=== PATIENT | female | born 1935 | race Caucasian/White ===

== ENCOUNTER 2016-03-29 14:09 | Inpatient (IN) | payer OTHER ==
[~2016-03-29] VITALS: Ht 165.1 cm; Wt 69.9 kg
[~2016-03-29 14:09] MED LIST: ALEN10TA6 PO; ALEN70TA27 PO; ASPI81TA2 PO; BENA40TA2 PO; CILO100T PO; CLON-433 PO; CLOP75TA2 PO; GABA-529 PO; GABA-531 PO; GLU500 PO; LABE200T28 PO; LABETOLOL PO; LIP40 PO; MIDAZOLAM HCL 5 MG/5 ML VIAL ONE; NIFE30TA PO; NS 1000 ML BAG IV ONE; PROPOFOL 200MG/ 20ML VIAL (DIPRIVAN) IV ONE; SEVOFLURANE 15 MIN GAS INH ONE; SIMV40TA2 PO; VALS1TAB80 PO; fentaNYL CITRATE/PF 100 MCG/2 ML AMP ONE
[2016-03-29 14:21] VITALS: BP 110/55; PULSE 122; RESP 20; TEMP 98.5; O2SAT 99
[2016-03-29 15:06] LABS: BASOPHILS # (AUTO) 0.1 K/uL (0.0-0.2); BASOPHILS % (AUTO) 0.7 % (0.0-2.0); EOSINOPHILS % (AUTO) 0.4 % (0.0-4.0); HEMATOCRIT 28.2 % (36-48); HEMOGLOBIN 9.6 g/dL (12.0-16.0); LYMPHOCYTES # (AUTO) 0.5 K/uL (1.0-5.5); LYMPHOCYTES % (AUTO) 4.6 % (20.5-51.5); MEAN CORPUSCULAR HEMOGLOBIN 28 pg (27-31); MEAN CORPUSCULAR HGB CONC 34 % (32-36); MEAN CORPUSCULAR VOLUME 83 fL (79.0-98.0); MONOCYTES # (AUTO) 0.5 K/uL (0.0-1.0); MONOCYTES % (AUTO) 4.7 % (1.7-9.3); NEUTROPHILS # (AUTO) 10.6 K/uL (1.8-7.7); NEUTROPHILS % (AUTO) 89.6 % (40.0-70.0); PLATELET COUNT (AUTO) 416 K/uL (130-430); RED BLOOD CELL COUNT(AUTO) 3.41 MIL/uL (4.2-6.2); RED CELL DISTRIBUTION WIDTH 14.3 % (9.0-15.0); WHITE BLOOD COUNT (AUTO) 11.7 K/uL (4.8-10.8)
[2016-03-29 15:10] LABS: ANION GAP 11 (5-15); CALCIUM 9.4 mg/dL (8.4-11.0); CHLORIDE 98 mmol/L (98-107); CREATININE 1.63 mg/dL (0.55-1.30); GLUCOSE 209 mg/dL (70-99); POTASSIUM 3.8 mmol/L (3.5-5.1); SODIUM SERUM 134 mmol/L (136-145); UREA NITROGEN, BLOOD 35 mg/dL (8-21)
[2016-03-29 15:14] LABS: INR 1.1 (0.8-1.2); PROTHROMBIN TIME 11.7 SECS (9.5-12.5)
[2016-03-29 15:15] LABS: ALANINE AMINOTRANSFERASE 23 U/L (12-78); ALBUMIN 2.4 g/dL (3.4-4.8); ASPARTATE AMINOTRANSFERASE 17 U/L (10-37); TOTAL BILIRUBIN 0.5 mg/dL (0.0-1.0); TOTAL PROTEIN, SERUM 6.3 g/dL (6.4-8.3)
[2016-03-29] MEDS ORDERED: VANCOMYCIN HCL 1,000 MG in NS 250 ML IV ONE (15:45)
[2016-03-29] MEDS ORDERED: NACL 0.9% 1,000 ML IV ONE (15:45)
[2016-03-29] MEDS ORDERED: VITA1CAP PO (15:49)
[2016-03-29] MEDS ORDERED: VANCOMYCIN HCL 1000 MG/VIAL IV ONE (15:49)
[2016-03-29] MEDS ORDERED: MULT-976 PO (15:49)
[2016-03-29] MEDS ORDERED: IND25 PO (15:49)
[2016-03-29] MEDS ORDERED: ACET-2165 PO (15:49)
[2016-03-29] MEDS ORDERED: VITD2000 PO (15:49)
[2016-03-29] MEDS ORDERED: NOR10 PO (15:49)
[2016-03-29] MEDS ORDERED: GLIP2.5T3 PO (15:49)
[2016-03-29] MEDS ORDERED: METO200T3 PO (15:49)
[2016-03-29] MEDS ORDERED: KETOROLAC TROMETHAMINE 15 MG VIAL IVP ONE (16:30)
[2016-03-29] MEDS ORDERED: MORPHINE 2 MG/ML INJ. SYRINGE IVP PRN (17:00)
[2016-03-29 17:03] VITALS: BP 115/65; PULSE 119; RESP 18; TEMP 97.5; O2SAT 96
[2016-03-29] MEDS ORDERED: DEXTROSE 50% JECT 50 ML DISP.SYRIN IVP PRN (17:15)
[2016-03-29] MEDS: METOPROLOL SUCCINATE 50 MG TAB.SR.24H (TOPROL XL) PO SCH (18:00)
[2016-03-29] MEDS: NACL 0.9% 1,000 ML IV SCH (18:29)
[2016-03-29] MEDS: INSULIN REGULAR, HUMAN 100 UNITS/ML, 10 ML VIAL (novoLIN R) SUBCUT PRN ×2 (18:39→23:33)
[2016-03-29 20:03] VITALS: BP 121/57; PULSE 100; RESP 18; TEMP 98.9; O2SAT 96
[2016-03-29] MEDS: ONDANSETRON HCL 4 MG/2 ML VIAL IVP PRN (20:26)
[2016-03-29] MEDS: ACETAMINOPHEN 325 MG TABLET PO PRN (20:29)
[2016-03-29 23:42] VITALS: BP 96/50; PULSE 94; RESP 18; TEMP 98.6; O2SAT 94
[2016-03-30] MEDS: ONDANSETRON HCL 4 MG/2 ML VIAL IVP PRN (02:26)
[2016-03-30] MEDS: ACETAMINOPHEN 325 MG TABLET PO PRN (02:27)
[2016-03-30 03:25] VITALS: BP 96/50; PULSE 86; RESP 18; TEMP 98.2; O2SAT 95
[2016-03-30] MEDS: NACL 0.9% 1,000 ML IV SCH ×2 (03:30→16:40)
[2016-03-30] MEDS ORDERED: HYDROmorphone 1 MG INJ. 1 MG/ML AMPUL IVP ONE (04:00)
[2016-03-30 06:56] LABS: BASOPHILS % (AUTO) 0.4 % (0.0-2.0); EOSINOPHILS # (AUTO) 0.1 K/uL (0.0-0.4); EOSINOPHILS % (AUTO) 0.7 % (0.0-4.0); HEMATOCRIT 27.6 % (36-48); HEMOGLOBIN 8.8 g/dL (12.0-16.0); LYMPHOCYTES # (AUTO) 0.7 K/uL (1.0-5.5); LYMPHOCYTES % (AUTO) 6.9 % (20.5-51.5); MEAN CORPUSCULAR HEMOGLOBIN 27 pg (27-31); MEAN CORPUSCULAR HGB CONC 32 % (32-36); MEAN CORPUSCULAR VOLUME 85 fL (79.0-98.0); MONOCYTES # (AUTO) 0.7 K/uL (0.0-1.0); NEUTROPHILS # (AUTO) 8.8 K/uL (1.8-7.7); PLATELET COUNT (AUTO) 349 K/uL (130-430); RED BLOOD CELL COUNT(AUTO) 3.23 MIL/uL (4.2-6.2); RED CELL DISTRIBUTION WIDTH 14.4 % (9.0-15.0); WHITE BLOOD COUNT (AUTO) 10.3 K/uL (4.8-10.8)
[2016-03-30 07:47] LABS: ALANINE AMINOTRANSFERASE 25 U/L (12-78); ANION GAP 9 (5-15); ASPARTATE AMINOTRANSFERASE 25 U/L (10-37); CALCIUM 8.4 mg/dL (8.4-11.0); CHLORIDE 105 mmol/L (98-107); CREATININE 1.41 mg/dL (0.55-1.30); GLUCOSE 137 mg/dL (70-99); POTASSIUM 4.1 mmol/L (3.5-5.1); SODIUM SERUM 137 mmol/L (136-145); TOTAL BILIRUBIN 0.5 mg/dL (0.0-1.0); TOTAL PROTEIN, SERUM 5.8 g/dL (6.4-8.3); UREA NITROGEN, BLOOD 32 mg/dL (8-21)
[2016-03-30] MEDS: glipiZIDE XL 2.5 MG/TAB (GLUCOTROL XL) PO SCH (09:00)
[2016-03-30] MEDS ORDERED: CLOPIDOGREL BISULFATE 75 MG TABLET PO SCH (09:00)
[2016-03-30 09:23] VITALS: BP 115/59; PULSE 105; RESP 19; TEMP 98; O2SAT 97
[2016-03-30] MEDS: CHOLECALCIFEROL (VITAMIN D3) 2,000 UNIT TABLET PO SCH (09:25)
[2016-03-30] MEDS: amLODIPine BESYLATE 10 MG TABLET PO SCH (09:25)
[2016-03-30] MEDS ORDERED: LACTOBACILLUS RHAMNOSUS GG 1 CAP CAPSULE PO ONE (09:45)
[2016-03-30] MEDS ORDERED: PIPERACILLIN/TAZO 3.375/DEX-IS 50 ML IV SCH (12:00)
[2016-03-30] MEDS ORDERED: FLUCONAZOLE 200 mg/ NS 100 ML IV ONE (12:15)
[2016-03-30 12:48] VITALS: BP 97/52; PULSE 95; RESP 18; TEMP 97.2; O2SAT 98
[2016-03-30] MEDS: CEFEPIME 1 GM in D5W 50 ML IV SCH ×2 (15:28→20:57)
[2016-03-30] MEDS ORDERED: VANCOMYCIN HCL 750 MG in NS 250 ML IV SCH (16:00)
[2016-03-30 16:50] VITALS: BP 106/69; PULSE 87; RESP 18; TEMP 98.2; O2SAT 96
[2016-03-30] MEDS ORDERED: HYDROmorphone 1 MG INJ. 1 MG/ML AMPUL IVP PRN (17:00)
[2016-03-30] MEDS: METOPROLOL SUCCINATE 50 MG TAB.SR.24H (TOPROL XL) PO SCH ×2 (17:57→18:00)
[2016-03-30 20:00] VITALS: BP 117/56; PULSE 88; RESP 18; TEMP 99.1; O2SAT 92
[2016-03-30] MEDS: CLOTRIMAZOLE/BETAMET DIPROP 15 GM TUBE TP SCH (22:19)
[2016-03-30] MEDS: LACTOBACILLUS RHAMNOSUS GG 1 CAP CAPSULE PO SCH (22:26)
[2016-03-31] VITALS (7 sets, daily range): BP systolic 99–115; BP diastolic 49–59; PULSE 94–107; RESP 18–19; TEMP 98.4–99.6; O2SAT 87–98
[2016-03-31] MEDS ORDERED: ALBUTEROL SULFATE 0.083% 2.5 MG/3 ML VIAL.NEB INH PRN (00:15)
[2016-03-31] MEDS: NACL 0.9% 1,000 ML IV SCH ×2 (00:57→09:30)
[2016-03-31] MEDS ORDERED: ALBUTEROL SULFATE 0.083% 2.5 MG/3 ML VIAL.NEB INH ONE (00:58)
[2016-03-31] MEDS: INSULIN REGULAR, HUMAN 100 UNITS/ML, 10 ML VIAL (novoLIN R) SUBCUT PRN ×3 (00:58→17:27)
[2016-03-31 07:47] LABS: BILIRUBIN,URINE NEGATIVE (NEGATIVE); BLOOD, URINE NEGATIVE (NEGATIVE); CLARITY/URINE CLEAR (CLEAR); COLOR,URINE YELLOW (YELLOW); GLUCOSE,URINE NEGATIVE (NEGATIVE); KETONES,URINE NEGATIVE (NEGATIVE); LEUKOCYTE ESTERASE ,URINE NEGATIVE (NEGATIVE); NITRITE, URINE NEGATIVE (NEGATIVE); PH,URINE 5.5 (5.0-8.0); PROTEIN URINE NEGATIVE (NEGATIVE); UROBILINOGEN,URINE 0.2 (0.2-1.0)
[2016-03-31] MEDS ORDERED: LR 1,000 ML IV SCH (08:26)
[2016-03-31] MEDS: glipiZIDE XL 2.5 MG/TAB (GLUCOTROL XL) PO SCH (09:00)
[2016-03-31] MEDS: amLODIPine BESYLATE 10 MG TABLET PO SCH (09:00)
[2016-03-31] MEDS: CEFEPIME 1 GM in D5W 50 ML IV SCH ×2 (09:46→20:35)
[2016-03-31] MEDS: FLUCONAZOLE 200 mg/ NS 100 ML IV SCH (09:46)
[2016-03-31] MEDS: CLOTRIMAZOLE/BETAMET DIPROP 15 GM TUBE TP SCH ×2 (09:47→23:28)
[2016-03-31] MEDS: 0.45% NACL 1,000 ML IV SCH (11:25)
[2016-03-31] MEDS: ALBUTEROL SULFATE 0.083% 2.5 MG/3 ML VIAL.NEB INH SCH ×4 (11:48→20:08)
[2016-03-31] MEDS: IPRATROPIUM BROM 0.5 MG/2.5 ML VIAL.NEB (ATROVENT) INH SCH ×3 (11:48→20:08)
[2016-03-31 12:10] LABS: ABG TOTAL HEMOGLOBIN 10.8 G/dL (12.0-18.0); BLOOD GAS BASE EXCESS -3.8 mmol/L (-3.0-3.0); BLOOD GAS PH 7.412 (7.350-7.450)
[2016-03-31 12:11] LABS: BLOOD GAS COHb% 0.1 % (0.5-1.5); BLOOD GAS HHB 22.9 % (0.0-6.0); BLOOD O2Hb% 76.8 % (94.0-97.0)
[2016-03-31] MEDS: CHOLECALCIFEROL (VITAMIN D3) 2,000 UNIT TABLET PO SCH (12:34)
[2016-03-31] MEDS: LACTOBACILLUS RHAMNOSUS GG 1 CAP CAPSULE PO SCH ×2 (12:34→20:42)
[2016-03-31] MEDS: BALSAM PERU/CASTOR OIL 60 GM OINT...G. TP SCH ×2 (12:36→23:28)
[2016-03-31] MEDS: traMADol HCL HCL 50 MG TABLET (ULTRAM) PO PRN (12:59)
[2016-03-31] MEDS: METOPROLOL SUCCINATE 50 MG TAB.SR.24H (TOPROL XL) PO SCH (17:20)
[2016-04-01] VITALS (9 sets, daily range): BP systolic 102–121; BP diastolic 46–66; PULSE 85–119; RESP 16–21; TEMP 97–102.2; O2SAT 90–95; Ht 165.1 cm; Wt 69.9 kg
[2016-04-01] MEDS: INSULIN REGULAR, HUMAN 100 UNITS/ML, 10 ML VIAL (novoLIN R) SUBCUT PRN ×2 (00:32→11:34)
[2016-04-01] MEDS: 0.45% NACL 1,000 ML IV SCH ×2 (05:35→21:57)
[2016-04-01] MEDS: IPRATROPIUM BROM 0.5 MG/2.5 ML VIAL.NEB (ATROVENT) INH PRN ×2 (06:02→16:46)
[2016-04-01] MEDS: ALBUTEROL SULFATE 0.083% 2.5 MG/3 ML VIAL.NEB INH PRN ×2 (06:02→16:46)
[2016-04-01 07:08] LABS: BASOPHILS % (AUTO) 0.3 % (0.0-2.0); EOSINOPHILS # (AUTO) 0.1 K/uL (0.0-0.4); EOSINOPHILS % (AUTO) 1.3 % (0.0-4.0); HEMATOCRIT 26.5 % (36-48); HEMOGLOBIN 8.8 g/dL (12.0-16.0); LYMPHOCYTES # (AUTO) 0.8 K/uL (1.0-5.5); LYMPHOCYTES % (AUTO) 8.3 % (20.5-51.5); MEAN CORPUSCULAR HEMOGLOBIN 28 pg (27-31); MEAN CORPUSCULAR HGB CONC 33 % (32-36); MEAN CORPUSCULAR VOLUME 83 fL (79.0-98.0); MONOCYTES # (AUTO) 0.9 K/uL (0.0-1.0); NEUTROPHILS # (AUTO) 7.5 K/uL (1.8-7.7); NEUTROPHILS % (AUTO) 80.1 % (40.0-70.0); PLATELET COUNT (AUTO) 393 K/uL (130-430); RED BLOOD CELL COUNT(AUTO) 3.18 MIL/uL (4.2-6.2); RED CELL DISTRIBUTION WIDTH 15.5 % (9.0-15.0); WHITE BLOOD COUNT (AUTO) 9.3 K/uL (4.8-10.8)
[2016-04-01] MEDS: ALBUTEROL SULFATE 0.083% 2.5 MG/3 ML VIAL.NEB INH SCH ×5 (07:24→23:30)
[2016-04-01] MEDS: IPRATROPIUM BROM 0.5 MG/2.5 ML VIAL.NEB (ATROVENT) INH SCH ×5 (07:24→23:30)
[2016-04-01 08:01] LABS: ALANINE AMINOTRANSFERASE 50 U/L (12-78); ALBUMIN 1.8 g/dL (3.4-4.8); ANION GAP 10 (5-15); ASPARTATE AMINOTRANSFERASE 60 U/L (10-37); CALCIUM 7.4 mg/dL (8.4-11.0); CHLORIDE 105 mmol/L (98-107); GLUCOSE 125 mg/dL (70-99); POTASSIUM 4.8 mmol/L (3.5-5.1); SODIUM SERUM 138 mmol/L (136-145); TOTAL BILIRUBIN 0.3 mg/dL (0.0-1.0); UREA NITROGEN, BLOOD 20 mg/dL (8-21)
[2016-04-01] MEDS ORDERED: CLOPIDOGREL BISULFATE 75 MG TABLET PO ONE (08:15)
[2016-04-01] MEDS: CILOSTAZOL 50 MG TABLET (PLETAL) PO SCH ×2 (09:33→21:57)
[2016-04-01] MEDS: CEFEPIME 1 GM in D5W 50 ML IV SCH ×2 (09:33→23:06)
[2016-04-01] MEDS: LACTOBACILLUS RHAMNOSUS GG 1 CAP CAPSULE PO SCH ×2 (09:34→21:57)
[2016-04-01] MEDS: CHOLECALCIFEROL (VITAMIN D3) 2,000 UNIT TABLET PO SCH (09:34)
[2016-04-01] MEDS: amLODIPine BESYLATE 10 MG TABLET PO SCH (09:34)
[2016-04-01] MEDS: glipiZIDE XL 2.5 MG/TAB (GLUCOTROL XL) PO SCH (09:35)
[2016-04-01] MEDS: CLOTRIMAZOLE/BETAMET DIPROP 15 GM TUBE TP SCH ×2 (09:35→21:58)
[2016-04-01] MEDS: BALSAM PERU/CASTOR OIL 60 GM OINT...G. TP SCH ×2 (10:28→21:58)
[2016-04-01] MEDS: FLUCONAZOLE 200 mg/ NS 100 ML IV SCH (10:28)
[2016-04-01] MEDS ORDERED: FUROSEMIDE 40 MG/4 ML VIAL IVP ONE (10:30)
[2016-04-01] MEDS ORDERED: POLYETHYLENE GLYCOL 3350, 17 GM/ POWD.PACK PO ONE (12:30)
[2016-04-01] MEDS: ACETAMINOPHEN 325 MG TABLET PO PRN (16:18)
[2016-04-01] MEDS: METOPROLOL SUCCINATE 50 MG TAB.SR.24H (TOPROL XL) PO SCH (17:41)
[2016-04-02] VITALS (7 sets, daily range): BP systolic 109–134; BP diastolic 55–67; PULSE 82–101; RESP 16–19; TEMP 97.6–98.9; O2SAT 89–94
[2016-04-02] MEDS: ALBUTEROL SULFATE 0.083% 2.5 MG/3 ML VIAL.NEB INH SCH ×6 (03:30→23:00)
[2016-04-02] MEDS: IPRATROPIUM BROM 0.5 MG/2.5 ML VIAL.NEB (ATROVENT) INH SCH ×6 (03:30→23:00)
[2016-04-02 06:31] LABS: BASOPHILS % (AUTO) 0.3 % (0.0-2.0); EOSINOPHILS # (AUTO) 0.2 K/uL (0.0-0.4); EOSINOPHILS % (AUTO) 1.7 % (0.0-4.0); HEMATOCRIT 27.9 % (36-48); HEMOGLOBIN 9.1 g/dL (12.0-16.0); LYMPHOCYTES # (AUTO) 0.6 K/uL (1.0-5.5); LYMPHOCYTES % (AUTO) 5.2 % (20.5-51.5); MEAN CORPUSCULAR HEMOGLOBIN 27 pg (27-31); MEAN CORPUSCULAR HGB CONC 33 % (32-36); MEAN CORPUSCULAR VOLUME 84 fL (79.0-98.0); MONOCYTES # (AUTO) 0.9 K/uL (0.0-1.0); NEUTROPHILS # (AUTO) 10.8 K/uL (1.8-7.7); NEUTROPHILS % (AUTO) 85.8 % (40.0-70.0); PLATELET COUNT (AUTO) 461 K/uL (130-430); RED BLOOD CELL COUNT(AUTO) 3.33 MIL/uL (4.2-6.2); RED CELL DISTRIBUTION WIDTH 15.3 % (9.0-15.0); WHITE BLOOD COUNT (AUTO) 12.5 K/uL (4.8-10.8)
[2016-04-02 07:21] LABS: ALANINE AMINOTRANSFERASE 49 U/L (12-78); ALBUMIN 1.8 g/dL (3.4-4.8); ANION GAP 10 (5-15); ASPARTATE AMINOTRANSFERASE 56 U/L (10-37); CALCIUM 7.6 mg/dL (8.4-11.0); CHLORIDE 102 mmol/L (98-107); CREATININE 0.94 mg/dL (0.55-1.30); GLUCOSE 98 mg/dL (70-99); POTASSIUM 4.1 mmol/L (3.5-5.1); SODIUM SERUM 137 mmol/L (136-145); TOTAL BILIRUBIN 0.4 mg/dL (0.0-1.0); UREA NITROGEN, BLOOD 19 mg/dL (8-21)
[2016-04-02] MEDS: LACTOBACILLUS RHAMNOSUS GG 1 CAP CAPSULE PO SCH ×2 (08:30→21:05)
[2016-04-02] MEDS: CILOSTAZOL 50 MG TABLET (PLETAL) PO SCH ×2 (08:30→21:05)
[2016-04-02] MEDS: POLYETHYLENE GLYCOL 3350, 17 GM/ POWD.PACK PO SCH (08:32)
[2016-04-02] MEDS: CEFEPIME 1 GM in D5W 50 ML IV SCH ×2 (08:32→21:01)
[2016-04-02] MEDS: CHOLECALCIFEROL (VITAMIN D3) 2,000 UNIT TABLET PO SCH (08:32)
[2016-04-02] MEDS: amLODIPine BESYLATE 10 MG TABLET PO SCH (08:32)
[2016-04-02] MEDS: glipiZIDE XL 2.5 MG/TAB (GLUCOTROL XL) PO SCH (09:43)
[2016-04-02] MEDS: CLOTRIMAZOLE/BETAMET DIPROP 15 GM TUBE TP SCH ×2 (09:43→21:08)
[2016-04-02] MEDS: BALSAM PERU/CASTOR OIL 60 GM OINT...G. TP SCH ×2 (09:44→21:08)
[2016-04-02] MEDS: FLUCONAZOLE 200 mg/ NS 100 ML IV SCH (09:57)
[2016-04-02] MEDS ORDERED: FUROSEMIDE 20 MG/2 ML VIAL IVP ONE ×2 (11:30→14:30)
[2016-04-02] MEDS: VANCOMYCIN HCL 1,000 MG in NS 250 ML IV SCH (12:53)
[2016-04-02] MEDS: 0.45% NACL 1,000 ML IV SCH (13:00)
[2016-04-02] MEDS: traMADol HCL HCL 50 MG TABLET (ULTRAM) PO PRN (14:34)
[2016-04-02] MEDS ORDERED: IOHEXOL 350 mgI/mL, 150 ML INFUS..BTL IV ONE (15:33)
[2016-04-02] MEDS: METOPROLOL SUCCINATE 50 MG TAB.SR.24H (TOPROL XL) PO SCH (17:55)
[2016-04-03 00:21] VITALS: BP 114/60; PULSE 97; RESP 17; TEMP 98; O2SAT 94
[2016-04-03] MEDS: IPRATROPIUM BROM 0.5 MG/2.5 ML VIAL.NEB (ATROVENT) INH SCH ×6 (03:00→20:40)
[2016-04-03] MEDS: ALBUTEROL SULFATE 0.083% 2.5 MG/3 ML VIAL.NEB INH SCH ×6 (03:00→20:40)
[2016-04-03 04:00] VITALS: BP 116/62; PULSE 87; RESP 18; TEMP 98.4; O2SAT 95
[2016-04-03] MEDS: 0.45% NACL 1,000 ML IV SCH (05:22)
[2016-04-03 06:35] LABS: BASOPHILS % (AUTO) 0.4 % (0.0-2.0); EOSINOPHILS # (AUTO) 0.2 K/uL (0.0-0.4); HEMATOCRIT 27.1 % (36-48); HEMOGLOBIN 8.9 g/dL (12.0-16.0); LYMPHOCYTES # (AUTO) 0.8 K/uL (1.0-5.5); LYMPHOCYTES % (AUTO) 7.7 % (20.5-51.5); MEAN CORPUSCULAR HEMOGLOBIN 27 pg (27-31); MEAN CORPUSCULAR HGB CONC 33 % (32-36); MEAN CORPUSCULAR VOLUME 83 fL (79.0-98.0); MONOCYTES # (AUTO) 0.7 K/uL (0.0-1.0); MONOCYTES % (AUTO) 6.8 % (1.7-9.3); NEUTROPHILS # (AUTO) 9.1 K/uL (1.8-7.7); NEUTROPHILS % (AUTO) 83.1 % (40.0-70.0); PLATELET COUNT (AUTO) 467 K/uL (130-430); RED BLOOD CELL COUNT(AUTO) 3.27 MIL/uL (4.2-6.2); RED CELL DISTRIBUTION WIDTH 15.4 % (9.0-15.0); WHITE BLOOD COUNT (AUTO) 10.8 K/uL (4.8-10.8)
[2016-04-03 06:48] LABS: ANION GAP 9 (5-15); CALCIUM 7.1 mg/dL (8.4-11.0); CHLORIDE 102 mmol/L (98-107); CREATININE 0.89 mg/dL (0.55-1.30); GLUCOSE 96 mg/dL (70-99); POTASSIUM 3.7 mmol/L (3.5-5.1); SODIUM SERUM 136 mmol/L (136-145); UREA NITROGEN, BLOOD 15 mg/dL (8-21)
[2016-04-03 08:06] VITALS: BP 108/50; PULSE 92; RESP 19; TEMP 97.3; O2SAT 92
[2016-04-03] MEDS: glipiZIDE XL 2.5 MG/TAB (GLUCOTROL XL) PO SCH ×2 (09:00→09:19)
[2016-04-03] MEDS: POLYETHYLENE GLYCOL 3350, 17 GM/ POWD.PACK PO SCH (09:00)
[2016-04-03] MEDS: CLOTRIMAZOLE/BETAMET DIPROP 15 GM TUBE TP SCH ×2 (09:17→20:56)
[2016-04-03] MEDS: CEFEPIME 1 GM in D5W 50 ML IV SCH ×2 (09:17→20:55)
[2016-04-03] MEDS: BALSAM PERU/CASTOR OIL 60 GM OINT...G. TP SCH ×2 (09:18→20:56)
[2016-04-03] MEDS: CILOSTAZOL 50 MG TABLET (PLETAL) PO SCH ×2 (09:19→20:55)
[2016-04-03] MEDS: CHOLECALCIFEROL (VITAMIN D3) 2,000 UNIT TABLET PO SCH (09:19)
[2016-04-03] MEDS: LACTOBACILLUS RHAMNOSUS GG 1 CAP CAPSULE PO SCH ×2 (09:20→20:55)
[2016-04-03] MEDS: amLODIPine BESYLATE 10 MG TABLET PO SCH (09:20)
[2016-04-03] MEDS: VANCOMYCIN HCL 1,000 MG in NS 250 ML IV SCH (12:00)
[2016-04-03 12:43] VITALS: BP 133/65; PULSE 106; RESP 19; TEMP 98.9; O2SAT 87
[2016-04-03] MEDS: ACETAMINOPHEN 325 MG TABLET PO PRN (14:01)
[2016-04-03] MEDS ORDERED: FUROSEMIDE 20 MG/2 ML VIAL IVP ONE (14:15)
[2016-04-03 17:05] VITALS: BP 106/50; PULSE 105; RESP 19; TEMP 98.1; O2SAT 95
[2016-04-03] MEDS: METOPROLOL SUCCINATE 50 MG TAB.SR.24H (TOPROL XL) PO SCH (18:02)
[2016-04-03] MEDS ORDERED: MAG-AL HYDROX/SIMETH 30 ML UDC PO ONE (18:30)
[2016-04-03 19:30] VITALS: BP 120/58; PULSE 92; RESP 18; TEMP 98; O2SAT 92
[2016-04-03] MEDS: traMADol HCL HCL 50 MG TABLET (ULTRAM) PO PRN (23:45)
[2016-04-03] MEDS: ONDANSETRON HCL 4 MG/2 ML VIAL IVP PRN (23:52)
[2016-04-04 00:30] VITALS: BP 122/64; PULSE 94; RESP 17; TEMP 98.4; O2SAT 91
[2016-04-04] MEDS: 0.45% NACL 1,000 ML IV SCH ×2 (01:54→17:19)
[2016-04-04 04:18] VITALS: BP 119/65; PULSE 88; RESP 18; TEMP 98.1; O2SAT 93
[2016-04-04 07:25] LABS: BASOPHILS % (AUTO) 0.2 % (0.0-2.0); EOSINOPHILS # (AUTO) 0.1 K/uL (0.0-0.4); EOSINOPHILS % (AUTO) 1.4 % (0.0-4.0); HEMATOCRIT 26.5 % (36-48); HEMOGLOBIN 8.8 g/dL (12.0-16.0); LYMPHOCYTES # (AUTO) 0.8 K/uL (1.0-5.5); LYMPHOCYTES % (AUTO) 7.9 % (20.5-51.5); MEAN CORPUSCULAR HEMOGLOBIN 28 pg (27-31); MEAN CORPUSCULAR HGB CONC 33 % (32-36); MEAN CORPUSCULAR VOLUME 83 fL (79.0-98.0); MONOCYTES # (AUTO) 0.6 K/uL (0.0-1.0); MONOCYTES % (AUTO) 5.7 % (1.7-9.3); NEUTROPHILS # (AUTO) 9.1 K/uL (1.8-7.7); NEUTROPHILS % (AUTO) 84.8 % (40.0-70.0); PLATELET COUNT (AUTO) 450 K/uL (130-430); RED CELL DISTRIBUTION WIDTH 15.4 % (9.0-15.0); WHITE BLOOD COUNT (AUTO) 10.6 K/uL (4.8-10.8)
[2016-04-04 07:38] LABS: ANION GAP 11 (5-15); CHLORIDE 102 mmol/L (98-107); CREATININE 0.98 mg/dL (0.55-1.30); GLUCOSE 87 mg/dL (70-99); POTASSIUM 3.7 mmol/L (3.5-5.1); SODIUM SERUM 136 mmol/L (136-145); UREA NITROGEN, BLOOD 14 mg/dL (8-21)
[2016-04-04] MEDS: IPRATROPIUM BROM 0.5 MG/2.5 ML VIAL.NEB (ATROVENT) INH SCH ×4 (07:43→21:02)
[2016-04-04] MEDS: ALBUTEROL SULFATE 0.083% 2.5 MG/3 ML VIAL.NEB INH SCH ×4 (07:43→21:01)
[2016-04-04 08:12] LABS: CALCIUM 6.8 mg/dL (8.4-11.0)
[2016-04-04 08:26] VITALS: BP 116/59; PULSE 87; RESP 20; TEMP 99.3; O2SAT 95
[2016-04-04] MEDS: BALSAM PERU/CASTOR OIL 60 GM OINT...G. TP PRN (08:27)
[2016-04-04] MEDS: CLOTRIMAZOLE/BETAMET DIPROP 15 GM TUBE TP SCH ×2 (08:27→20:48)
[2016-04-04] MEDS: CILOSTAZOL 50 MG TABLET (PLETAL) PO SCH ×2 (08:28→20:49)
[2016-04-04] MEDS: CLOPIDOGREL BISULFATE 75 MG TABLET PO SCH (08:28)
[2016-04-04] MEDS: LACTOBACILLUS RHAMNOSUS GG 1 CAP CAPSULE PO SCH (08:28)
[2016-04-04] MEDS: glipiZIDE XL 2.5 MG/TAB (GLUCOTROL XL) PO SCH (08:28)
[2016-04-04] MEDS: amLODIPine BESYLATE 10 MG TABLET PO SCH (08:29)
[2016-04-04] MEDS: POLYETHYLENE GLYCOL 3350, 17 GM/ POWD.PACK PO SCH (08:29)
[2016-04-04] MEDS: CHOLECALCIFEROL (VITAMIN D3) 2,000 UNIT TABLET PO SCH (08:29)
[2016-04-04] MEDS: CEFEPIME 1 GM in D5W 50 ML IV SCH ×2 (08:32→20:48)
[2016-04-04] MEDS: BALSAM PERU/CASTOR OIL 60 GM OINT...G. TP SCH ×2 (08:33→20:55)
[2016-04-04] MEDS ORDERED: FUROSEMIDE 20 MG/2 ML VIAL IVP ONE (10:00)
[2016-04-04] MEDS ORDERED: CALCIUM 500 MG/TAB PO ONE (10:45)
[2016-04-04] MEDS: VANCOMYCIN HCL 1,000 MG in NS 250 ML IV SCH (11:48)
[2016-04-04 12:53] VITALS: BP 120/57; PULSE 99; RESP 18; TEMP 99; O2SAT 92
[2016-04-04 16:38] VITALS: BP 115/62; PULSE 97; RESP 18; TEMP 99.3; O2SAT 91
[2016-04-04] MEDS: METOPROLOL SUCCINATE 50 MG TAB.SR.24H (TOPROL XL) PO SCH (17:18)
[2016-04-04] MEDS: ACETAMINOPHEN 325 MG TABLET PO PRN (17:24)
[2016-04-04] MEDS: CALCIUM 500 MG/TAB PO SCH (20:49)
[2016-04-05] VITALS (7 sets, daily range): BP systolic 112–124; BP diastolic 56–71; PULSE 86–104; RESP 14–20; TEMP 97.6–99.7; O2SAT 90–97
[2016-04-05 06:51] LABS: ANION GAP 12 (5-15); CHLORIDE 102 mmol/L (98-107); CREATININE 0.95 mg/dL (0.55-1.30); GLUCOSE 81 mg/dL (70-99); POTASSIUM 3.9 mmol/L (3.5-5.1); SODIUM SERUM 137 mmol/L (136-145); UREA NITROGEN, BLOOD 12 mg/dL (8-21)
[2016-04-05 06:52] LABS: BASOPHILS % (AUTO) 0.1 % (0.0-2.0); EOSINOPHILS # (AUTO) 0.2 K/uL (0.0-0.4); HEMATOCRIT 27.3 % (36-48); HEMOGLOBIN 9.1 g/dL (12.0-16.0); LYMPHOCYTES # (AUTO) 0.8 K/uL (1.0-5.5); LYMPHOCYTES % (AUTO) 6.9 % (20.5-51.5); MEAN CORPUSCULAR HEMOGLOBIN 27 pg (27-31); MEAN CORPUSCULAR HGB CONC 33 % (32-36); MEAN CORPUSCULAR VOLUME 82 fL (79.0-98.0); MONOCYTES # (AUTO) 0.6 K/uL (0.0-1.0); MONOCYTES % (AUTO) 5.5 % (1.7-9.3); NEUTROPHILS # (AUTO) 9.5 K/uL (1.8-7.7); NEUTROPHILS % (AUTO) 85.5 % (40.0-70.0); PLATELET COUNT (AUTO) 470 K/uL (130-430); RED BLOOD CELL COUNT(AUTO) 3.32 MIL/uL (4.2-6.2); RED CELL DISTRIBUTION WIDTH 15.6 % (9.0-15.0); WHITE BLOOD COUNT (AUTO) 11.1 K/uL (4.8-10.8)
[2016-04-05 06:58] LABS: CALCIUM 6.9 mg/dL (8.4-11.0)
[2016-04-05] MEDS: CEFEPIME 1 GM in D5W 50 ML IV SCH (08:46)
[2016-04-05] MEDS: CILOSTAZOL 50 MG TABLET (PLETAL) PO SCH ×2 (08:46→21:55)
[2016-04-05] MEDS: CHOLECALCIFEROL (VITAMIN D3) 2,000 UNIT TABLET PO SCH (08:47)
[2016-04-05] MEDS: CLOPIDOGREL BISULFATE 75 MG TABLET PO SCH (08:47)
[2016-04-05] MEDS: amLODIPine BESYLATE 10 MG TABLET PO SCH (08:49)
[2016-04-05] MEDS: CALCIUM 500 MG/TAB PO SCH ×2 (08:50→21:55)
[2016-04-05] MEDS: POLYETHYLENE GLYCOL 3350, 17 GM/ POWD.PACK PO SCH (08:52)
[2016-04-05] MEDS: BALSAM PERU/CASTOR OIL 60 GM OINT...G. TP SCH ×2 (09:00→21:00)
[2016-04-05] MEDS ORDERED: ETOMIDATE 20 MG/ 10 ML VIAL (AMIDATE) ONE (09:04)
[2016-04-05] MEDS ORDERED: SUCCINYLCHOLINE CHLORIDE 20 MG/ML(QUELICIN) ONE (09:04)
[2016-04-05] MEDS ORDERED: FUROSEMIDE 20 MG/2 ML VIAL IVP ONE (09:15)
[2016-04-05] MEDS: ALBUTEROL SULFATE 0.083% 2.5 MG/3 ML VIAL.NEB INH SCH ×3 (11:57→19:24)
[2016-04-05] MEDS: IPRATROPIUM BROM 0.5 MG/2.5 ML VIAL.NEB (ATROVENT) INH SCH ×3 (11:57→19:23)
[2016-04-05] MEDS: glipiZIDE XL 2.5 MG/TAB (GLUCOTROL XL) PO SCH ×2 (12:35→13:05)
[2016-04-05] MEDS: 0.45% NACL 1,000 ML IV SCH (12:36)
[2016-04-05] MEDS: BALSAM PERU/CASTOR OIL 60 GM OINT...G. TP PRN ×3 (12:37→21:57)
[2016-04-05] MEDS: CLOTRIMAZOLE/BETAMET DIPROP 15 GM TUBE TP SCH ×2 (12:37→21:57)
[2016-04-05] MEDS: VANCOMYCIN HCL 1,000 MG in NS 250 ML IV SCH (13:13)
[2016-04-05] MEDS: ONDANSETRON HCL 4 MG/2 ML VIAL IVP PRN (13:18)
[2016-04-05] MEDS: traMADol HCL HCL 50 MG TABLET (ULTRAM) PO PRN (16:04)
[2016-04-05] MEDS: METOPROLOL SUCCINATE 50 MG TAB.SR.24H (TOPROL XL) PO SCH (18:10)
[2016-04-05] MEDS ORDERED: MORPHINE 2 MG/ML INJ. SYRINGE ONE (22:39)
[2016-04-05] MEDS ORDERED: LORazepam 2 MG/ML VIAL ONE (22:41)
[2016-04-05] MEDS ORDERED: HYDROmorphone 1 MG INJ. 1 MG/ML AMPUL ONE (22:41)
[2016-04-05 23:04] LABS: HEMATOCRIT 20.3 % (36-48); HEMOGLOBIN 6.4 g/dL (12.0-16.0)
[2016-04-05 23:08] LABS: INR 1.1 (0.8-1.2)
[2016-04-05] MEDS ORDERED: LR 1,000 ML IV.SOLN IV ONE (23:46)
[2016-04-05] MEDS ORDERED: NS 1000 ML BAG IV ONE (23:46)
[2016-04-05] MEDS ORDERED: NS IRRIG SOLN 1000 ML IR ONE (23:46)
[2016-04-05] MEDS ORDERED: fentaNYL CITRATE 250 MCG/5 ML AMP IV ONE (23:46)
[2016-04-05] MEDS ORDERED: DEXAMETHASONE SOD PHOSPHATE 4 MG/ML VIAL IVP ONE (23:46)
[2016-04-05] MEDS ORDERED: MIDAZOLAM HCL 5 MG/5 ML VIAL IVP ONE (23:46)
[2016-04-05] MEDS ORDERED: ROCURONIUM BROMIDE 10 MG/ML (ZEMURON) IV ONE (23:46)
[2016-04-06] VITALS (31 sets, daily range): BP systolic 63–176; BP diastolic 35–89; PULSE 73–100; RESP 12–29; TEMP 96.5–97.6; O2SAT 93–100
[2016-04-06] MEDS ORDERED: NACL 0.9% 1,000 ML IV SCH (00:03)
[2016-04-06] MEDS ORDERED: MEPERIDINE HCL/PF 25 MG/ML DISP.SYRIN IVP PRN ×2 (00:15)
[2016-04-06] MEDS ORDERED: NOREPINEPHRINE 4 MG/4 ML VIAL IV ONE ×3 (01:00→06:25)
[2016-04-06 01:29] LABS: HEMATOCRIT 25.2 % (36-48); HEMOGLOBIN 8.3 g/dL (12.0-16.0); MEAN CORPUSCULAR HEMOGLOBIN 29 pg (27-31); MEAN CORPUSCULAR HGB CONC 33 % (32-36); MEAN CORPUSCULAR VOLUME 88 fL (79.0-98.0); PLATELET COUNT (AUTO) 349 K/uL (130-430); RED BLOOD CELL COUNT(AUTO) 2.88 MIL/uL (4.2-6.2); RED CELL DISTRIBUTION WIDTH 14.9 % (9.0-15.0); WHITE BLOOD COUNT (AUTO) 20.2 K/uL (4.8-10.8)
[2016-04-06] MEDS ORDERED: NOREPINEPHRINE BITARTRATE 4 MG in D5W 246 ML IV PRN (01:30)
[2016-04-06] MEDS ORDERED: NS 500 ML IV ONE (01:32)
[2016-04-06] MEDS: NACL 0.9% 1,000 ML IV SCH ×2 (01:32→15:43)
[2016-04-06 01:35] LABS: ANION GAP 18 (5-15); CHLORIDE 105 mmol/L (98-107); CREATININE 1.31 mg/dL (0.55-1.30); GLUCOSE 171 mg/dL (70-99); POTASSIUM 4.8 mmol/L (3.5-5.1); SODIUM SERUM 136 mmol/L (136-145); UREA NITROGEN, BLOOD 12 mg/dL (8-21)
[2016-04-06 01:41] LABS: ALANINE AMINOTRANSFERASE 46 U/L (12-78); ALBUMIN 1.3 g/dL (3.4-4.8); ASPARTATE AMINOTRANSFERASE 115 U/L (10-37); TOTAL BILIRUBIN 0.3 mg/dL (0.0-1.0)
[2016-04-06 01:44] LABS: CALCIUM 6.1 mg/dL (8.4-11.0)
[2016-04-06] MEDS ORDERED: SODIUM BICARBONATE 8.4% JECT 50 MEQ/50 ML SYRINGE ONE ×2 (01:44→16:48)
[2016-04-06] MEDS ORDERED: SODIUM BICARBONATE 8.4% JECT 50 MEQ/50 ML SYRINGE IVP SCH (01:45)
[2016-04-06 01:57] LABS: BAND % (MANUAL) 14 % (0-6); BASOPHILS % (MANUAL) 0 % (0-2); EOSINOPHILS % (MANUAL) 2 % (0-7); LYMPHOCYTES % (MANUAL) 14 % (20-46); METAMYELOCYTES % 2 % (0-0); MONOCYTES % (MANUAL) 2 % (0-11); MYELOCYTES % 1 % (0-0)
[2016-04-06] MEDS ORDERED: ALBUMIN HUMAN 5% 250 ML IV ONE (02:00)
[2016-04-06] MEDS ORDERED: COMMUNICATION ORDER XX ONE (02:30)
[2016-04-06] MEDS ORDERED: ZOSYN (PIPERACILLIN/TAZO) 3.375 GM in DEX-ISO (50ml) IV ONE (03:00)
[2016-04-06] MEDS ORDERED: PIPERACILLIN/TAZOBACTAM 3.375 GM/VIAL (ZOSYN) IV ONE (03:23)
[2016-04-06] MEDS: INSULIN REGULAR, HUMAN 100 UNITS/ML, 10 ML VIAL (novoLIN R) SUBCUT PRN ×3 (06:28→18:09)
[2016-04-06 06:53] LABS: ALANINE AMINOTRANSFERASE 56 U/L (12-78); ALBUMIN 1.9 g/dL (3.4-4.8); ANION GAP 15 (5-15); ASPARTATE AMINOTRANSFERASE 143 U/L (10-37); CHLORIDE 103 mmol/L (98-107); CREATININE 1.06 mg/dL (0.55-1.30); GLUCOSE 221 mg/dL (70-99); POTASSIUM 3.9 mmol/L (3.5-5.1); SODIUM SERUM 138 mmol/L (136-145); TOTAL PROTEIN, SERUM 4.5 g/dL (6.4-8.3); UREA NITROGEN, BLOOD 14 mg/dL (8-21)
[2016-04-06 06:54] LABS: BASOPHILS # (AUTO) 0.1 K/uL (0.0-0.2); BASOPHILS % (AUTO) 0.2 % (0.0-2.0); HEMOGLOBIN 9.4 g/dL (12.0-16.0); NEUTROPHILS # (AUTO) 31.8 K/uL (1.8-7.7)
[2016-04-06 07:29] LABS: EOSINOPHILS # (AUTO) 0.3 K/uL (0.0-0.4); EOSINOPHILS % (AUTO) 0.8 % (0.0-4.0); HEMATOCRIT 27.7 % (36-48); LYMPHOCYTES % (AUTO) 2.9 % (20.5-51.5); MEAN CORPUSCULAR HEMOGLOBIN 30 pg (27-31); MEAN CORPUSCULAR HGB CONC 34 % (32-36); MEAN CORPUSCULAR VOLUME 87 fL (79.0-98.0); MONOCYTES # (AUTO) 0.4 K/uL (0.0-1.0); MONOCYTES % (AUTO) 1.1 % (1.7-9.3); PLATELET COUNT (AUTO) 346 K/uL (130-430); RED BLOOD CELL COUNT(AUTO) 3.17 MIL/uL (4.2-6.2); RED CELL DISTRIBUTION WIDTH 14.7 % (9.0-15.0)
[2016-04-06 07:35] LABS: WHITE BLOOD COUNT (AUTO) 33.6 K/uL (4.8-10.8)
[2016-04-06] MEDS: ALBUTEROL SULFATE 0.083% 2.5 MG/3 ML VIAL.NEB INH SCH ×5 (07:47→23:00)
[2016-04-06] MEDS: IPRATROPIUM BROM 0.5 MG/2.5 ML VIAL.NEB (ATROVENT) INH SCH ×5 (07:47→23:00)
[2016-04-06 08:11] LABS: ABG TOTAL HEMOGLOBIN 11.9 G/dL (12.0-18.0); BLOOD GAS BASE EXCESS -8.2 mmol/L (-3.0-3.0); BLOOD GAS COHb% 0.3 % (0.5-1.5); BLOOD GAS HHB 6.2 % (0.0-6.0); BLOOD GAS PH 7.407 (7.350-7.450); BLOOD O2Hb% 93.2 % (94.0-97.0)
[2016-04-06] MEDS: amLODIPine BESYLATE 10 MG TABLET PO SCH (09:00)
[2016-04-06] MEDS: CHOLECALCIFEROL (VITAMIN D3) 2,000 UNIT TABLET PO SCH (09:00)
[2016-04-06] MEDS: POLYETHYLENE GLYCOL 3350, 17 GM/ POWD.PACK PO SCH (09:00)
[2016-04-06] MEDS: CALCIUM 500 MG/TAB PO SCH ×2 (09:00→21:00)
[2016-04-06] MEDS: CILOSTAZOL 50 MG TABLET (PLETAL) PO SCH ×2 (09:00→21:00)
[2016-04-06] MEDS: CLOPIDOGREL BISULFATE 75 MG TABLET PO SCH (09:00)
[2016-04-06] MEDS ORDERED: NOREPINEPHRINE BITARTRATE 8 MG in D5W 242 ML IV PRN (10:00)
[2016-04-06] MEDS ORDERED: CALCIUM CHLORIDE 1 GM in NS 100 ML IV SCH (11:00)
[2016-04-06] MEDS: PIPERACILLIN/TAZOBACTAM 3.375 GM/ D5W 50 ML IV SCH ×6 (11:27→23:55)
[2016-04-06] MEDS: VANCOMYCIN HCL 1,000 MG in NS 250 ML IV SCH (11:28)
[2016-04-06] MEDS ORDERED: LORazepam 2 MG/ML VIAL IVP PRN (14:00)
[2016-04-06] MEDS: HYDROCORTISONE SOD SUCC 100 MG/2 ML VIAL IVP SCH ×2 (14:55→21:54)
[2016-04-06 15:22] LABS: HEMATOCRIT 32.2 % (36-48); HEMOGLOBIN 10.8 g/dL (12.0-16.0); MEAN CORPUSCULAR HEMOGLOBIN 29 pg (27-31); MEAN CORPUSCULAR HGB CONC 34 % (32-36); MEAN CORPUSCULAR VOLUME 87 fL (79.0-98.0); RED BLOOD CELL COUNT(AUTO) 3.68 MIL/uL (4.2-6.2); RED CELL DISTRIBUTION WIDTH 14.2 % (9.0-15.0); WHITE BLOOD COUNT (AUTO) 29.5 K/uL (4.8-10.8)
[2016-04-06 16:29] LABS: ABG TOTAL HEMOGLOBIN 11.6 G/dL (12.0-18.0); BLOOD GAS BASE EXCESS -7.1 mmol/L (-3.0-3.0); BLOOD GAS PH 7.369 (7.350-7.450); BLOOD O2Hb% 92.1 % (94.0-97.0)
[2016-04-06 16:30] LABS: BLOOD GAS COHb% 0.3 % (0.5-1.5)
[2016-04-06] MEDS ORDERED: SODIUM BICARBONATE 8.4% JECT 50 MEQ/50 ML SYRINGE IVP ONE (16:45)
[2016-04-06 16:59] LABS: ATYPICAL LYMPHOCYTES % 0 % (0-0); BAND % (MANUAL) 6 % (0-6); BASOPHILS % (MANUAL) 0 % (0-2); EOSINOPHILS % (MANUAL) 0 % (0-7); LYMPHOCYTES % (MANUAL) 3 % (20-46); MONOCYTES % (MANUAL) 1 % (0-11); PLATELET COUNT (AUTO) 395 K/uL (130-430)
[2016-04-06] MEDS: METOPROLOL SUCCINATE 50 MG TAB.SR.24H (TOPROL XL) PO SCH (18:00)
[2016-04-06] MEDS: FLUCONAZOLE 200 mg/ NS 100 ML IV SCH (21:33)
[2016-04-07] VITALS (23 sets, daily range): BP systolic 105–135; BP diastolic 44–76; PULSE 82–113; RESP 16–31; TEMP 97.1–99; O2SAT 91–96
[2016-04-07] MEDS: BALSAM PERU/CASTOR OIL 60 GM OINT...G. TP SCH ×3 (00:12→22:00)
[2016-04-07] MEDS: CLOTRIMAZOLE/BETAMET DIPROP 15 GM TUBE TP SCH ×3 (00:14→22:00)
[2016-04-07] MEDS: IPRATROPIUM BROM 0.5 MG/2.5 ML VIAL.NEB (ATROVENT) INH SCH ×5 (03:00→23:00)
[2016-04-07] MEDS: ALBUTEROL SULFATE 0.083% 2.5 MG/3 ML VIAL.NEB INH SCH ×5 (03:00→23:00)
[2016-04-07] MEDS: NACL 0.9% 1,000 ML IV SCH ×3 (04:11→17:17)
[2016-04-07] MEDS: PIPERACILLIN/TAZOBACTAM 3.375 GM/ D5W 50 ML IV SCH ×6 (06:00→17:17)
[2016-04-07] MEDS: HYDROCORTISONE SOD SUCC 100 MG/2 ML VIAL IVP SCH ×2 (06:18→16:53)
[2016-04-07] MEDS: INSULIN REGULAR, HUMAN 100 UNITS/ML, 10 ML VIAL (novoLIN R) SUBCUT PRN ×4 (06:19→17:29)
[2016-04-07 06:50] LABS: HEMATOCRIT 29.5 % (36-48); HEMOGLOBIN 9.9 g/dL (12.0-16.0); MEAN CORPUSCULAR HEMOGLOBIN 29 pg (27-31); MEAN CORPUSCULAR HGB CONC 34 % (32-36); MEAN CORPUSCULAR VOLUME 87 fL (79.0-98.0); PLATELET COUNT (AUTO) 351 K/uL (130-430); RED BLOOD CELL COUNT(AUTO) 3.41 MIL/uL (4.2-6.2); RED CELL DISTRIBUTION WIDTH 14.8 % (9.0-15.0); WHITE BLOOD COUNT (AUTO) 25.6 K/uL (4.8-10.8)
[2016-04-07 07:10] LABS: ALANINE AMINOTRANSFERASE 58 U/L (12-78); ALBUMIN 1.8 g/dL (3.4-4.8); ANION GAP 14 (5-15); ASPARTATE AMINOTRANSFERASE 71 U/L (10-37); CHLORIDE 104 mmol/L (98-107); CREATININE 1.21 mg/dL (0.55-1.30); GLUCOSE 174 mg/dL (70-99); SODIUM SERUM 141 mmol/L (136-145); TOTAL BILIRUBIN 0.4 mg/dL (0.0-1.0); UREA NITROGEN, BLOOD 17 mg/dL (8-21)
[2016-04-07 07:15] LABS: CALCIUM 6.5 mg/dL (8.4-11.0)
[2016-04-07 08:13] LABS: BAND % (MANUAL) 3 % (0-6); BASOPHILS % (MANUAL) 0 % (0-2); EOSINOPHILS % (MANUAL) 0 % (0-7); LYMPHOCYTES % (MANUAL) 5 % (20-46); MONOCYTES % (MANUAL) 1 % (0-11)
[2016-04-07 08:24] LABS: BLOOD GAS BASE EXCESS -4.1 mmol/L (-3.0-3.0); BLOOD GAS COHb% 0.3 % (0.5-1.5); BLOOD GAS PH 7.421 (7.350-7.450)
[2016-04-07] MEDS: CHOLECALCIFEROL (VITAMIN D3) 2,000 UNIT TABLET PO SCH (09:00)
[2016-04-07] MEDS: CALCIUM 500 MG/TAB PO SCH ×2 (09:00→22:00)
[2016-04-07] MEDS: CILOSTAZOL 50 MG TABLET (PLETAL) PO SCH ×2 (09:00→21:59)
[2016-04-07] MEDS: CLOPIDOGREL BISULFATE 75 MG TABLET PO SCH (09:00)
[2016-04-07] MEDS: glipiZIDE XL 2.5 MG/TAB (GLUCOTROL XL) PO SCH (09:00)
[2016-04-07] MEDS: POLYETHYLENE GLYCOL 3350, 17 GM/ POWD.PACK PO SCH (09:00)
[2016-04-07] MEDS: amLODIPine BESYLATE 10 MG TABLET PO SCH (09:00)
[2016-04-07] MEDS ORDERED: FUROSEMIDE 20 MG/2 ML VIAL IVP ONE (10:15)
[2016-04-07] MEDS ORDERED: POTASSIUM CHLORIDE 40 MEQ, LIDOCAINE JECT 2% PF 100 MG 75 MG in NS 250 ML IV ONE (11:00)
[2016-04-07] MEDS ORDERED: CALCIUM CHLORIDE 1 GM in NS 100 ML IV ONE (12:00)
[2016-04-07] MEDS: ONDANSETRON HCL 4 MG/2 ML VIAL IVP PRN ×2 (12:30→18:55)
[2016-04-07] MEDS: VANCOMYCIN HCL 1,000 MG in NS 250 ML IV SCH (12:53)
[2016-04-07] MEDS: METOPROLOL SUCCINATE 50 MG TAB.SR.24H (TOPROL XL) PO SCH (17:18)
[2016-04-07] MEDS: PANTOPRAZOLE SODIUM 40 MG/VIAL (PROTONIX) IVP SCH ×2 (21:00→21:59)
[2016-04-07] MEDS ORDERED: TEMAZEPAM 7.5 MG CAPSULE PO ONE (21:45)
[2016-04-07] MEDS: FLUCONAZOLE 200 mg/ NS 100 ML IV SCH (21:59)
[2016-04-08] VITALS (24 sets, daily range): BP systolic 95–143; BP diastolic 51–72; PULSE 90–131; RESP 11–36; TEMP 97.2–99; O2SAT 86–98
[2016-04-08] MEDS: PIPERACILLIN/TAZOBACTAM 3.375 GM/ D5W 50 ML IV SCH ×8 (00:41→17:54)
[2016-04-08] MEDS: HYDROCORTISONE SOD SUCC 100 MG/2 ML VIAL IVP SCH ×3 (00:41→15:42)
[2016-04-08] MEDS: ALBUTEROL SULFATE 0.083% 2.5 MG/3 ML VIAL.NEB INH PRN ×2 (00:46→13:30)
[2016-04-08] MEDS: IPRATROPIUM BROM 0.5 MG/2.5 ML VIAL.NEB (ATROVENT) INH PRN ×2 (00:47→13:30)
[2016-04-08] MEDS: INSULIN REGULAR, HUMAN 100 UNITS/ML, 10 ML VIAL (novoLIN R) SUBCUT PRN ×4 (01:14→17:54)
[2016-04-08] MEDS ORDERED: ONDANSETRON HCL 4 MG/2 ML VIAL ONE (01:39)
[2016-04-08] MEDS: HYDROmorphone 1 MG INJ. 1 MG/ML AMPUL IVP PRN ×2 (01:41→13:25)
[2016-04-08] MEDS: IPRATROPIUM BROM 0.5 MG/2.5 ML VIAL.NEB (ATROVENT) INH SCH ×5 (03:00→19:00)
[2016-04-08] MEDS: ALBUTEROL SULFATE 0.083% 2.5 MG/3 ML VIAL.NEB INH SCH ×5 (03:00→23:18)
[2016-04-08] MEDS: NACL 0.9% 1,000 ML IV SCH (05:13)
[2016-04-08 06:39] LABS: BASOPHILS % (AUTO) 0.1 % (0.0-2.0); HEMATOCRIT 24.2 % (36-48); HEMOGLOBIN 8.1 g/dL (12.0-16.0); LYMPHOCYTES # (AUTO) 0.4 K/uL (1.0-5.5); LYMPHOCYTES % (AUTO) 2.9 % (20.5-51.5); MEAN CORPUSCULAR HEMOGLOBIN 29 pg (27-31); MEAN CORPUSCULAR HGB CONC 34 % (32-36); MEAN CORPUSCULAR VOLUME 87 fL (79.0-98.0); MONOCYTES # (AUTO) 0.4 K/uL (0.0-1.0); MONOCYTES % (AUTO) 2.8 % (1.7-9.3); NEUTROPHILS # (AUTO) 13.9 K/uL (1.8-7.7); NEUTROPHILS % (AUTO) 94.2 % (40.0-70.0); PLATELET COUNT (AUTO) 249 K/uL (130-430); RED BLOOD CELL COUNT(AUTO) 2.78 MIL/uL (4.2-6.2); RED CELL DISTRIBUTION WIDTH 14.5 % (9.0-15.0); WHITE BLOOD COUNT (AUTO) 14.7 K/uL (4.8-10.8)
[2016-04-08 07:05] LABS: ANION GAP 10 (5-15); CHLORIDE 108 mmol/L (98-107); CREATININE 1.34 mg/dL (0.55-1.30); GLUCOSE 202 mg/dL (70-99); SODIUM SERUM 142 mmol/L (136-145); UREA NITROGEN, BLOOD 16 mg/dL (8-21)
[2016-04-08 07:55] LABS: POTASSIUM 2.6 mmol/L (3.5-5.1)
[2016-04-08 07:56] LABS: CALCIUM 6.5 mg/dL (8.4-11.0)
[2016-04-08 08:21] LABS: BLOOD GAS PH 7.384 (7.350-7.450)
[2016-04-08 08:22] LABS: ABG TOTAL HEMOGLOBIN 9.9 G/dL (12.0-18.0); BLOOD GAS BASE EXCESS -3.6 mmol/L (-3.0-3.0); BLOOD GAS COHb% 0.3 % (0.5-1.5); BLOOD O2Hb% 88.3 % (94.0-97.0)
[2016-04-08 08:23] LABS: BLOOD GAS HHB 11.2 % (0.0-6.0)
[2016-04-08] MEDS: POLYETHYLENE GLYCOL 3350, 17 GM/ POWD.PACK PO SCH (09:00)
[2016-04-08] MEDS: PANTOPRAZOLE SODIUM 40 MG/VIAL (PROTONIX) IVP SCH ×2 (09:15→21:19)
[2016-04-08] MEDS: CALCIUM 500 MG/TAB PO SCH ×2 (09:15→21:18)
[2016-04-08] MEDS: CILOSTAZOL 50 MG TABLET (PLETAL) PO SCH ×2 (09:15→21:18)
[2016-04-08] MEDS: CLOPIDOGREL BISULFATE 75 MG TABLET PO SCH (09:15)
[2016-04-08] MEDS: CHOLECALCIFEROL (VITAMIN D3) 2,000 UNIT TABLET PO SCH (09:16)
[2016-04-08] MEDS: amLODIPine BESYLATE 10 MG TABLET PO SCH (09:16)
[2016-04-08] MEDS: CLOTRIMAZOLE/BETAMET DIPROP 15 GM TUBE TP SCH ×2 (09:18→21:00)
[2016-04-08] MEDS: glipiZIDE XL 2.5 MG/TAB (GLUCOTROL XL) PO SCH (09:18)
[2016-04-08] MEDS: BALSAM PERU/CASTOR OIL 60 GM OINT...G. TP PRN (09:19)
[2016-04-08] MEDS: BALSAM PERU/CASTOR OIL 60 GM OINT...G. TP SCH ×2 (09:19→21:19)
[2016-04-08] MEDS ORDERED: POTASSIUM CHLORIDE 60 MEQ in NS 500 ML IV SCH (09:30)
[2016-04-08 09:35] LABS: BLOOD GAS PH 7.057 (7.350-7.450)
[2016-04-08 09:36] LABS: ABG TOTAL HEMOGLOBIN 8.2 G/dL (12.0-18.0); BLOOD GAS BASE EXCESS -18.5 mmol/L (-3.0-3.0); BLOOD GAS COHb% 0.1 % (0.5-1.5); BLOOD GAS HHB 5.6 % (0.0-6.0); BLOOD O2Hb% 93.4 % (94.0-97.0)
[2016-04-08] MEDS ORDERED: FUROSEMIDE 40 MG/4 ML VIAL IVP ONE (09:45)
[2016-04-08] MEDS ORDERED: CALCIUM GLUCONATE 1 GM in NS 100 ML IV ONE (09:45)
[2016-04-08] MEDS ORDERED: POTASSIUM CHLORIDE 20 MEQ TAB.PRT.SR PO ONE (09:45)
[2016-04-08] MEDS ORDERED: 0.45% NACL 1,000 ML IV SCH (09:45)
[2016-04-08] MEDS ORDERED: CALCIUM CHLORIDE 1 GM in NS 100 ML IV SCH (10:30)
[2016-04-08] MEDS ORDERED: POTASSIUM CHLORIDE 20 MEQ TAB.PRT.SR ONE (10:59)
[2016-04-08] MEDS: VANCOMYCIN HCL 1,000 MG in NS 250 ML IV SCH (14:24)
[2016-04-08] MEDS ORDERED: LORazepam 2 MG/ML VIAL IVP PRN (16:30)
[2016-04-08] MEDS: METOPROLOL SUCCINATE 50 MG TAB.SR.24H (TOPROL XL) PO SCH (17:55)
== END 2016-04-08 23:19 | disposition short-term general hospital (02) | DRG 853 ==
LOC: SED 14:09 → SMU 16:39 → SIC 04-06 00:41
PROVIDERS: ADMIT Internal Medicine Hospice and Palliative Medicine; ATTEND Internal Medicine Hospice and Palliative Medicine
PROC: 2W17X6Z Compression of Left Inguinal Region using Pressure Dressing (ICD-10-PCS; 2016-03-31)
PROC: 0JBC0ZZ Excision of Pelvic Region Subcutaneous Tissue and Fascia, Open Approach (ICD-10-PCS; principal; 2016-03-31 08:00)
PROC: 30233N1 Transfusion of Nonautologous Red Blood Cells into Peripheral Vein, Percutaneous Approach (ICD-10-PCS; 2016-04-05)
PROC: 30233K1 Transfusion of Nonautologous Frozen Plasma into Peripheral Vein, Percutaneous Approach (ICD-10-PCS; 2016-04-06)
PROC: 30233L1 Transfusion of Nonautologous Fresh Plasma into Peripheral Vein, Percutaneous Approach (ICD-10-PCS; 2016-04-06)
PROC: 5A1935Z Respiratory Ventilation, Less than 24 Consecutive Hours (ICD-10-PCS; 2016-04-06)
PROC: 0BH17EZ Insertion of Endotracheal Airway into Trachea, Via Natural or Artificial Opening (ICD-10-PCS; 2016-04-06)
PROC: 04QJ0ZZ Repair Left External Iliac Artery, Open Approach (ICD-10-PCS; 2016-04-06)
PROC: 02HV33Z Insertion of Infusion Device into Superior Vena Cava, Percutaneous Approach (ICD-10-PCS; 2016-04-07)
PROC: B548ZZA Ultrasonography of Superior Vena Cava, Guidance (ICD-10-PCS; 2016-04-07)
DX: A41.9 Sepsis, unspecified organism (principal); E43 Unspecified severe protein-calorie malnutrition; J69.0 Pneumonitis due to inhalation of food and vomit; R65.21 Severe sepsis with septic shock; J96.91 Respiratory failure, unspecified with hypoxia; T82.838A Hemorrhage due to vascular prosthetic devices, implants and grafts, initial encounter; L02.214 Cutaneous abscess of groin; J98.11 Atelectasis; L03.314 Cellulitis of groin; L02.416 Cutaneous abscess of left lower limb; I13.0 Hypertensive heart and chronic kidney disease with heart failure and stage 1 through stage 4 chronic kidney disease, or unspecified chronic kidney disease; N18.9 Chronic kidney disease, unspecified; B35.6 Tinea cruris; D64.9 Anemia, unspecified; E11.51 Type 2 diabetes mellitus with diabetic peripheral angiopathy without gangrene; E78.5 Hyperlipidemia, unspecified; I25.10 Atherosclerotic heart disease of native coronary artery without angina pectoris; E11.22 Type 2 diabetes mellitus with diabetic chronic kidney disease; I50.9 Heart failure, unspecified; L30.9 Dermatitis, unspecified; E66.9 Obesity, unspecified; M19.90 Unspecified osteoarthritis, unspecified site; E11.65 Type 2 diabetes mellitus with hyperglycemia; J44.9 Chronic obstructive pulmonary disease, unspecified; A49.02 Methicillin resistant Staphylococcus aureus infection, unspecified site; Y83.8 Other surgical procedures as the cause of abnormal reaction of the patient, or of later complication, without mention of misadventure at the time of the procedure; Z88.8 Allergy status to other drugs, medicaments and biological substances; Y92.89 Other specified places as the place of occurrence of the external cause; Z87.891 Personal history of nicotine dependence; Z86.73 Personal history of transient ischemic attack (TIA), and cerebral infarction without residual deficits; Z74.01 Bed confinement status; Z88.7 Allergy status to serum and vaccine; Z68.25 Body mass index [BMI] 25.0-25.9, adult; Z88.6 Allergy status to analgesic agent; Z79.899 Other long term (current) drug therapy; Z90.49 Acquired absence of other specified parts of digestive tract; Z98.61 Coronary angioplasty status
CPT/HCPCS: 36415; 36600; 71010; 71275; 80048; 80053; 80202-TC; 81003; 82803-TC; 82962; 83605; 85007; 85018-TC; 85025; 85027; 85610-TC; 85730-TC; 86886; 86900; 86901; 86920; 87040-TC; 87070-TC; 87075-TC; 87081; 87186-TC; 87205-TC; 87230-TC; 88304; 88305; 93005; 93306; 93923; 93970; 94002; 94003; 94640; 94760; 96361; 96365; 96366; 96375; 97110-GP; 97530-GP; 99291; A6550; C1751; C1769; C9113; J0330; J0692; J1100; J1170; J1450; J1720; J1815; J1885; J1940; J2060; J2250; J2270; J2405; J2543; J2704; J3010; J3370; J3480; J3490; J7030; J7040; J7050; J7060; J7120; P9021; P9041; P9059; Q9967